=== PATIENT | female | born 1990 | race Caucasian/White ===

== ENCOUNTER 2024-08-28 12:39 | Emergency (ER) | payer MEDICAID, SELFPAY ==
[2024-08-28 12:42] VITALS: BP 137/89; PULSE 79; TEMP 37; O2SAT 95; BMI 30.2
--- NOTE | 2024-08-28 12:45 | ED.C_ITS ---
HPI - Psych 2 General: Chief Complaint: Psychiatric Symptoms Stated Complaint: 96 hour hold Time Seen by Provider: 08/28/24 12:41 History of Present Illness: 33-year-old female who presents emergenc y room by ambulance with police on a 96- hour court ordered psychiatric hold. Affidavit states that she has been off her medications for 4 days and is manic/psychotic. She been doing things like leaving the burner on in the apartment. She has been fighting with an imaginary person. She became catatonic and would not speak or follow reasonable request. There is felt she is a concern that she might hurt herself. Another affidavit states that she has been having irrational behaviors and twitching. Grunting instead of talking. Related Data Allergies Allergy/AdvReac Type Severity Reaction Status Date / Time metronidazole (From Flagyl) Allergy Unknown Verified 08/28/24 12:52 Review of Systems 2 General: Reports: 10 or more systems reviewed and unremarkable except in HPI and below Physical Exam 2 Narrative: EXAM NARRATIVE: General: Alert, no acute distress. Skin: Warm, dry. Head: Normocephalic, atraumatic. Neck: Supple, trachea midline. Eye: Extraocular movements are intact. Ears, nose, mouth and throat: mucosa moist. Cardiovascular: Regular, Normal peripheral perfusion. Respiratory: Lungs are clear to auscultation, respirations are non-labored, breath sounds are equal, Symmetrical chest wall expansion. Gastrointestinal: Soft, Nontender, Non distended Musculoskeletal: Normal ROM, no deformity. Neurological: Alert and oriented, No focal neurological deficit observed. Psychiatric: Patient keeps stating that she is here on a 36-hour hold . She really will not tell me much else. She does not seem to know why she is here. Course 2 Vital Signs: Vital signs: Vital Signs Temperature 97.8 F 08/28/24 14:23 Pulse Rate 85 08/28/24 14:23 Blood Pressure 112/76 08/28/24 14:23 Pulse Oximetry 96 08/28/24 14:23 Oxygen Delivery Me thod Room Air 08/28/24 14:23 MDM - Psych Medical Decision Making Medical decision making: Differential diagnosis for patient with reported psychosis with plan for psychiatric admission including but not limited to and based on the above HPI, review of systems and physical exam: concerns for infection, alcohol intoxication, cardiac issues or other medical problems prior to psychiatric admission. Orders placed to evaluate differential diagnosis based on the above differential, HPI and physical exam labwork, ekg ordered to evaluate the pathologies and to clear the patient medically prior to psychiatric admission EKG: Time 1416. Rate 91. Normal sinus rhythm, No ST-T changes, no ectopy, normal OR & QRS intervals, This was reviewed and interpreted by myself the ER physician at 1420 Lab Review: Laboratory results were reviewed and interpreted by myself the emergency room physician. - Medically cleared. - EKG shows no ischemic changes. - Blood alcohol level is negative, as well as salicylate and Tylenol. - Drug screen is positive for amphetamines and marijuana - No signs of infection, urinalysis clear and white count is not elevated - No anemia. - BUN and creatinine are within normal limits. I reviewed the patient's medical record. Assessment and plan: Psychosis -Admission to neuropsychiatric unit for continued evaluation and treatment. She will be transferred to unit elsewhere as we have no beds. - All lab work was reviewed and interpreted personally by myself, the ER physician - Evaluation and treatment of this problem were appropriate in the emergency setting Lab Data 08/28/24 12:55 08/28/24 12:55 Laboratory Results WBC 10.40 10^3/uL (3.29-11.43) 08/28/24 12:55 RBC 4.77 10^6/uL (3.85-5.65) 08/28/24 12:55 Hgb 14.30 g/dL (11.27-16.99) 08/28/24 12:55 Hct 43.6 % (36-47) 08/28/24 12:55 MCV 91.4 fl (85-98) 08/28/24 12:55 MCH 30.0 pg (27-33) 08/28/24 12:55 MCHC 32.8 g/dL (30-55) 08/28/24 12:55 RDW 13.9 % (12.1-15.1) 08/28/24 12:55 Plt Count 331 10^3/cmm (157-399) 08/28/24 12:55 MPV 11.1 fL (7.4-10.4) H 08/28/24 12:55 Neut % (Auto) 66.2 % 08/28/24 12:55 Lymph % (Auto) 21.4 % 08/28/24 12:55 [place] % (Auto) 9.8 % 08/28/24 12:55 Eos % (Auto) 1.8 % 08/28/24 12:55 Baso % (Auto) 0.6 % 08/28/24 12:55 Neut # (Auto) 6.88 10^3/uL (1.8-7.7) 08/28/24 12:55 Lymph # (Auto) 2.2 10^3/uL (0.8-4.8) 08/28/24 12:55 [place] # (Auto) 1.0 10^3/uL (0.2-0.9) H 08/28/24 12:55 Eos # (Auto) 0.2 10^3/uL (0.0-0.8) 08/28/24 12:55 Baso # (Auto) 0.1 10^3/uL (0.0-0.1) 08/28/24 12:55 Nucleated RBC % (auto) 0 % 08/28/24 12:55 Nucleated RBCs # 0.0 /100WBC 08/28/24 12:55 Sodium 139 mmol/L (136-145) 08/28/24 12:55 Potassium 3.9 mmol/L (3.5-5.1) 08/28/24 12:55 Chloride 101 mmol/L (98-107) 08/28/24 12:55 Carbon Dioxide 21 mmol/L (22-29) L 08/28/24 12:55 Anion Gap 20.9 (5-19) H 08/28/24 12:55 BUN 13 mg/dL (6-20) 08/28/24 12:55 Creatinine 0.6 mg/dL (0.5-0.9) 08/28/24 12:55 GFR Calculation 113.8 mL/min (90-130) 08/28/24 12:55 Glucose 85 mg/dL (65-115) 08/28/24 12:55 Calculated Osmolality 287 mOsm/kg (285-295) 08/28/24 12:55 Calcium 9.6 mg/dL (8.5-10.5) 08/28/24 12:55 Total Bilirubin 0.9 mg/dL (0.15-1.2) 08/28/24 12:55 AST 20 U/L (0-32) 08/28/24 12:55 ALT 13 U/L (0-33) 08/28/24 12:55 Alkaline Phosphatase 85 U/L (35-105) 08/28/24 12:55 Total Protein 7.9 g/dL (6.6-8.7) 08/28/24 12:55 Albumin 4.6 g/dL (3.5-5.2) 08/28/24 12:55 Globulin 3.3 g/dL (1.3-4.6) 08/28/24 12:55 TSH 1.32 uIU/mL (0.27-4.20) 08/28/24 12:55 HCG, Qual Negative (Negative) 08/28/24 12:54 Urine Color Yellow (Yellow) 08/28/24 12:54 Urine Appearance Turbid (CLEAR) A 08/28/24 12:54 Urine pH 5.5 (5-7) 08/28/24 12:54 Ur Specific [place] 1.030 (1.005-1.030) 08/28/24 12:54 Urine Protein Trace (Negative) A 08/28/24 12:54 Urine Glucose (UA) Negative (Normal) 08/28/24 12:54 Urine Ketones 2+ (Negative) H 08/28/24 12:54 Urine Blood Negative (Negative) 08/28/24 12:54 Urine Nitrate Negative (Negative) 08/28/24 12:54 Urine Bilirubin Negative (Negative) 08/28/24 12:54 Urine Urobilinogen 1.0 mg/dL (Negative) 08/28/24 12:54 Ur Leukocyte Esterase 2+ (Negative) A 08/28/24 12:54 Urine RBC 0-2 /hpf (0-2) 08/28/24 12:54 Urine WBC 51-100 /hpf (0-5) H 08/28/24 12:54 Ur Squamous Epith Cells 21-50 /hpf (0-5) H 08/28/24 12:54 Amorphous Sediment Not Reportable 08/28/24 12:54 Urine Bacteria 4+ /hpf (NONE) H 08/28/24 12:54 Hyaline Casts 3.30 /lpf 08/28/24 12:54 Salicylates < 0.3 mg/dL (3-10) L 08/28/24 12:55 Urine Opiates Screen Negative ng/mL (Negative) 08/28/24 12:54 Acetaminophen < 5.0 ug/mL (10-30) L 08/28/24 12:55 Ur Barbiturates Screen Negative ng/mL (Negative) 08/28/24 12:54 Ur Phencyclidine Scrn Negative ng/mL (Negative) 08/28/24 12:54 Ur Amphetamines Screen Positive ng/mL (Negative) H 08/28/24 12:54 U Benzodiazepines Scrn Negative ng/mL (Negative) 08/28/24 12:54 Urine Cocaine Screen Negative ng/mL (Negative) 08/28/24 12:54 U Marijuana (THC) Screen Positive ng/mL (Negative) H 08/28/24 12:54 Ethyl Alcohol < 10 mg/dL (0-10) 08/28/24 12:55 No radiology studies performed this visit Discharge Plan Discharge Patient Disposition: Xfer Psychiatric Hosp Clinical Impression: Acute psychosis Condition: Stable Print Language: [place]i Coding Level of Care Code ED [employer] for [employer]intan Tee
[2024-08-28 13:07] LABS: HCG Qualitative Urine. Negative (Negative)
[2024-08-28 13:24] LABS: Hematocrit 43.6 % (36-47); Hemoglobin 14.30 g/dL (11.27-16.99); Mean Corpuscular HGB Conc 32.8 g/dL (30-55); Mean Corpuscular Hemoglobin 30.0 pg (27-33); Mean Corpuscular Volume 91.4 fl (85-98); Nucleated Red Blood Cells % 0 %; Platelet Count 331 10^3/cmm (157-399); Red Blood Count 4.77 10^6/uL (3.85-5.65); White Blood Count 10.40 10^3/uL (3.29-11.43)
[2024-08-28 13:24] LABS: Glucose Urine UA Negative (Normal); Nitrate Urine Negative (Negative); Specific Gravity, Urine 1.030 (1.005-1.030)
[2024-08-28 13:26] LABS: Add Urine Microscopic? YES
[2024-08-28 13:31] LABS: PCP Screen Urine Negative (Negative)
[2024-08-28] MEDS: LORazepam 1 MG/0.5 ML injection 2 MG IM (13:45)
[2024-08-28] MEDS: water for injection-sterile 10 ML 2 ML (13:46)
[2024-08-28 14:03] LABS: Alanine Aminotransferase 13 U/L (0-33); Albumin Level 4.6 g/dL (3.5-5.2); Alkaline Phosphatase 85 U/L (35-105); Anion Gap 20.9 (5-19); Aspartate Amino Transferase 20 U/L (0-32); Blood Urea Nitrogen 13 mg/dL (6-20); Calcium 9.6 mg/dL (8.5-10.5); Carbon Dioxide 21 mmol/L (22-29); Chloride 101 mmol/L (98-107); Creatinine Clr Calc Pharmacy 164.0035; Globulin 3.3 g/dL (1.3-4.6); Glucose 85 mg/dL (65-115); Osmolality Calculated 287 mOsm/kg (285-295); Potassium 3.9 mmol/L (3.5-5.1); Sodium 139 mmol/L (136-145); Thyroid Stimulating Hormone 1.32 uIU/mL (0.27-4.20); Total Protein 7.9 g/dL (6.6-8.7)
[2024-08-28 14:05] LABS: Acetaminophen < 5.0 ug/mL (10-30); Alcohol Level < 10 mg/dL (0-10); Salicylate < 0.3 mg/dL (3-10)
--- NOTE | 2024-08-28 14:16 | ECG_ITS ---
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
[2024-08-28 14:23] VITALS: BP 112/76; PULSE 85; TEMP 36.6; O2SAT 96
--- NOTE | 2024-08-28 15:01 | XR_ITS ---
WS: [id number] Portable AP supine chest, 08/28/2024 Clinical Data: Psychiatric work up Comparison: None. Findings: No nodules, masses or effusions are seen. The heart is normal. The pulmonary vascularity is not increased. No pneumonia or pneumothorax is seen. XR/XR chest 1V portable 22409 Impression: Negative chest.
[2024-08-28 16:24] LABS: Respiratory Syncytial Virus Ce NEGATIVE (Negative); SARS-CoV-2 PCR NEGATIVE (Negative)
--- NOTE | 2024-08-28 16:39 | PC.NURSE ---
96 hr rights reviewed with pt @[phone] with assistance [facility] property and supply officer Nicolas Patino. All education regarding hold parameters reviewed at this time. Pt copy was left @bedside with pt. Pt provided a sandwich and soda. No further needs.
[2024-08-28 17:56] VITALS: BP 102/65; PULSE 69; O2SAT 100
[2024-08-28] MEDS: cefTRIAXone 1,000 MG in water for injection-sterile 2.1 ML 2.1 MG IM (17:58)
[2024-08-28 20:14] VITALS: BP 136/59; PULSE 85; O2SAT 97
== END 2024-08-28 20:18 ==
PROVIDERS: Emergency Provider Emergency Medicine
DX: F23 Brief psychotic disorder (principal)
CPT/HCPCS: 36415; 71045; 80053; 80306; 80307; 81001; 81025; 84443; 85025; 87086; 87637; 93005; 96372; 99285; J0696; J2060; J3486